=== PATIENT | female | born 1975 | race Caucasian/White ===

== ENCOUNTER → 2024-04-28 08:45 | Outpatient (CLI) | payer OTHER, SELFPAY ==
--- NOTE | 2024-04-28 | DI.NM.S_ITS ---
PROCEDURE: NM BONE SCAN WHOLE BODY RADIOPHARMACEUTICAL: 22 mCi Tc-99m MDP IV. INDICATIONS: lytic bone lesions on xray TECHNIQUE: Delayed whole-body scintigrams were obtained approximately 3-4 hours after intravenous injection of radiotracer. Anterior and posterior views were acquired from vertex to feet. Additional left and right oblique views of the chest were obtained. COMPARISON: None. FINDINGS: Abnormal radiotracer uptake in the sternal body. No additional suspicious radiotracer uptake. Degenerative uptake in the ankles, knees, shoulders. IMPRESSION: Abnormal radiotracer uptake associated with the inferior sternal body, concerning for metastatic disease. Dictated by: Miguel A Aguilera M.D. on 04/28/2024 at 14:10 Approved by: Miguel A Aguilera M.D. on 04/28/2024 at 14:22
== END ==
PROVIDERS: Referring Provider Internal Medicine; Visit Provider Internal Medicine
DX: C50.911 Malignant neoplasm of unspecified site of right female breast (principal); M89.9 Disorder of bone, unspecified; R93.7 Abnormal findings on diagnostic imaging of other parts of musculoskeletal system; Z17.0 Estrogen receptor positive status [ER+]
CPT/HCPCS: 78306; A9503